=== PATIENT | male | born 1965 | race Caucasian/White ===

== ENCOUNTER 2017-08-10 07:00 | Outpatient (RCR) | payer OTHER, SELFPAY ==
--- NOTE | 2017-07-20 07:59 | HP.PTEVAL ---
Patient's Visit Information HAMLET BUNDY is a 51 year old M referred to Physical Therapy by Evan CHAUHAN with a diagnosis of L sided neck strain. Date of Evaluation: 07/20/17 Physical Therapist: Vinod Menendez, PT, - Visit Plan Frequency: 2x /Week Duration: 3 Weeks Plan: Postural edu, c/s retraction, scap stab ex's, DTR, MH, and HEP - Subjective Subjective: Pt reports he slipped on ice around Thanksgiving and fell. Pt notes he didnt immediately experience neck pain, but notes he did begin to have pain a couple days later. Pt notes the pain eventually went away, but returned 2 weeks ago. Pt reports the pain radiates down his L UE to his hand. Pt reports his pain is better in the morning, and progressively worsens in the morning. No sleep diff secondary to pain. No Dx tests at this time. Pt is taking muscle relaxant at this time. Heat helps pain. Nothing in particular provokes his pain. Intermitttent neck pain in the past, but never this bad. 6/10 at rest, 8/10 at worst (as the day progresses). Driving increases pain. 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 - Pain neck pain Pain Intensity (Out of 10): 6 Pain Intensity Range: 8 - Objective Neuro: B UE sensation is WNL to light touch. B bicepital reflex= 2/3. ROM: Pt is moderately limited with retraction, L SB, and ext. all other motion WNL. MMT: B UE is rated at 5/5 throughout. Repeated movements: rep protraction in sitting increased neck pain. rep retraction increases central neck pain. no UE radiculopathy produced. Pt notes retraction with L lat bend increases L UE. Special tests: pos vertebral compression and distraction test - Goals Goal 1:: Decrease neck pain x 50% to aid with IADL's Goal Time Frame: 2-4 Weeks Goal 2:: Decrease F and I of L UE radiculopathy x 50% to aid with IADL's Goal Time Frame: 2-4 Weeks Goal 3:: Increase C/S ROM to WNL to aid with driving Goal Time Frame: 2-4 Weeks Goal 4:: I with HEP Goal Time Frame: 2-4 Weeks - Rehabilitation Potential Physical Therapy Diagnosis: neck pain, limited ROM in C/S, and L UE radiculopathy secondary to Rehabilitation Potential: Good - Anticipated Interventions Patient/Client Instruction: Educate patient on: Condition, Plan of Care For the Purpose of:: To improve self management Therapeutic Exercise to Include: Strength training, Body mechanics, Postural training, Active ROM, Scapular Strength/Stabilization For the Purpose of:: To decrease pain, To increase ROM, To improve muscle performance and motor function Thermo therapy (hot pack): Yes For the Purpose of:: To decrease pain Thank you for the opportunity to evaluate your patient. For Medicare and Medicare HMO plans, please review the plan of care and approve it. It will need to be FAXED BACK to us at [phone] for Medicare purposes. Please let me know if there are questions or concerns regarding this plan of care. Physician Signature: Date:
--- NOTE | 2017-08-10 07:36 | HP.PTDCSUM ---
HP - PT D/C Summary It has been my pleasure to treat HAMLET BUNDY under orders from Evan Lange, for the diagnosis of L sided neck strain for a total of 7 visit(s). Discharge Date: Please see the following information for a summary of their discharge status. - Subjective Subjective: Only minor pain this date - Pain neck pain Pain Intensity (Out of 10): 1 - Objective Objective/Function: Pain in c/s 07/11. C/S ROM: Pt no longer has radiculopathy in L UE. Pt is I with HEP. Rx goals achieved - Goals Goal 1:: Decrease neck pain x 50% to aid with IADL's Goal Progress: Goal Met Goal 2:: Decrease F and I of L UE radiculopathy x 50% to aid with IADL's Goal Progress: Goal Met Goal 3:: Increase C/S ROM to WNL to aid with driving Goal Progress: Goal Met Goal 4:: I with HEP Goal Progress: Goal Met - Plan Plan: discharge - D/C Information If there are questions or concerns regarding this patient's physical therapy, please feel free to call me at [phone]. Thank you for the referral of this patient. Sincerely, Vinod Menendez, PT,
== END 2017-08-10 19:00 | disposition home or self-care (01) ==
LOC: PT 07:00
PROVIDERS: Family Provider Family Medicine; PCP Family Medicine; Visit Provider Family Medicine
DX: S16.1XXD Strain of muscle, fascia and tendon at neck level, subsequent encounter (principal)
CPT/HCPCS: 97110; 97140; 97161; 97530

== ENCOUNTER → 2019-02-11 13:02 | Outpatient (CLI) | payer OTHER, SELFPAY ==
--- NOTE | 2019-02-11 | IMM_PTH ---
PATIENT: HAMLET BUNDY LOC: [facility] U#:[id number] AGE/SX: 59/M ROOM: RE02/11/[address]: Dr. Evan Lange MD : 1965 BED: DIS: SPEC #: [id number] RECD: 02/12/19 12:58 STATUS: CLAUDIA REeMgan #: [id number] BARBARA: 02/11/19 00:[address]: Evan Lange DEPT: IMMUNOHISTOCHEMISTRY RECD BY: Lainey Rodgers Tissues: Shoulder, NOS Procedures: CK14 (add) CK5-6 (add) Vimentin (add) Pankeratin (initial) MELAN-A (add) P40 (add) S-100 (add) PHYSICIAN & INSTITUTION [place] [id number] SPECIMEN INFORMATION: Tissue Source: Left shoulder excision Clinical Info: Rule out melanoma Specimen Number: [id number] CPT code: 31365, 72061 x6 METHODOLOGY: Deparaffinized sections of prefer/formalin-fixed tissue or PAP/DQ stained slides are incubated with monoclonal/polyclonal antibodies/oligonucleotide probes. Localization is made via biotin free immunoperoxidase method. Appropriate controls are performed and reacted as expected. Results on target cell population are indicated in the following table: RESULTS: ANTIBODY / CLONE RESULT AE1-3 (AE1/AE3/PCK26) positive P40 (BC28) positive Vimentin (V9) negative S-100 (4C4.9) negative Melan A (A103) negative CK5-6 (D5 & 1684) positive CK14 (LL002) positive These tests were developed and their performance characteristics determined by [facility]. They may not have been cleared or approved by the U.S. Food and Drug Administration. The FDA has determined that such clearance or approval is not necessary. INTERPRETATION: Skin lesion of left shoulder, shave biopsy: No evidence of melanoma. AM:amber 02/13/19
--- NOTE | 2019-02-11 10:00 | LES_PTH ---
PATIENT: HAMLET BUNDY LOC: [facility] U#:[id number] AGE/SX: 59/M ROOM: RE02/11/[address]: Dr. Evan Lange MD : 1965 BED: DIS: SPEC #: [id number] RECD: 02/11/19 12:16 STATUS: CLAUDIA PENAMegan #: [id number] BARBARA: 02/11/19 10:[address]: Evan Lange DEPT: SURGICAL PATHOLOGY RECD BY: Don Palma Tissues: Skin of forearm, NOS Procedures: Surgery Specimen Level IV HEADER OPERATION: Excision left shoulder PRE-OP DIAGNOSIS: Rule out melanoma TISSUE SUBMITTED: Excision left shoulder MICROSCOPIC DIAGNOSIS Skin lesion of left shoulder, shave biopsy: Mild actinic change. Focal changes suggestive of lentigo. No evidence of melanoma. AM:amber 02/12/19 COMMENT Immunohistochemistry ([id number]) supports the above diagnosis. Case has been reviewed in consultation with Dr. Hammond who concurs with the above diagnosis. IDC:SJ MICROSCOPIC DESCRIPTION Slides are reviewed. GROSS DESCRIPTION Received in fixative is one container labeled with the patient's name and designated left shoulder. The specimen consists of a light cruz shave biopsy of skin measuring 2 x 1 x 0.2 cm. The specimen is inked, serially sectioned and totally submitted in one cassette. / AM:amber 02/11/19 TC: CPT: 59375
== END ==
PROVIDERS: Family Provider Family Medicine; PCP Family Medicine; Referring Provider Family Medicine; Visit Provider Family Medicine
DX: M75.92 Shoulder lesion, unspecified, left shoulder (principal)
CPT/HCPCS: 88305; 88341; 88342

== ENCOUNTER → 2019-08-04 09:32 | Outpatient (CLI) | payer OTHER, SELFPAY ==
[2019-08-04 10:39] LABS: Erythrocyte Sedimentation Rate 1 mm/hr (0-20)
[2019-08-04 10:42] LABS: Absolute Lymphocyte Count 0.97 X10^3/uL (0.83-4.51); Absolute Neutrophil Count 3.2 X10^3/uL (2.0-7.7); Basophil# 0.06 X10^3/uL; Basophil% 1.3 % (0-1); Eosinophil# 0.06 X10^3/uL; Eosinophils% 1.3 % (0-5); Hematocrit 48.5 % (40-54); Hemoglobin 15.6 g/dL (13.0-16.5); Lymphocyte # 0.97 X10^3/ul (4.0); Mean Corp Hgb Conc 32.2 g/dL (32-36); Mean Corpuscular Hgb 29.1 pg (27.0-32.0); Mean Corpuscular Volume 90.5 fL (80-94); Mean Platelet Vol. 10.1 fl (6.2-12.0); Monocyte# 0.36 X10^3/uL; Monocyte% 7.8 % (0-10); NRBC Flagged by Analyzer 0 % (0-5); Neutrophil # 3.15 X10^3/uL (2.7-7.7); Neutrophil % 68.2 % (47-70); Platelet Count 244 K/mm3 (150-450); RBC Distribution Width CV 12.5 % (11.6-14.6); Red Blood Count 5.36 M/mm3 (4.6-6.2); White Blood Count 4.6 K/mm3 (4.4-11.0)
[2019-08-04 11:28] LABS: Anion Gap 6 (5-15); BUN 17 mg/dL (7-18); BUN/Creat Ratio 14.4 RATIO (10-20); Calcium,Total 9.3 mg/dL (8.5-10.1); Chloride 106 mmol/L (98-107); Creatinine, Serum 1.18 mg/dL (0.70-1.30); EST Glomerular Filtration Rate 68 mL/min (>60); Est Glom Filt Rate - Afr Amer 82 mL/min (>60); Ferritin 71 ng/mL (26-388); Glucose 104 mg/dL (74-106); Iron 88 ug/dL (65-175); Magnesium 2.4 mg/dL (1.6-2.6); Potassium 4.1 mmol/L (3.5-5.1); Sodium Level 139 mmol/L (136-145); T4 Free Direct 0.89 ng/dL (0.76-1.46); Thyroid Stim Hormone (TSH) 1.32 uIU/mL (0.358-3.74)
== END ==
PROVIDERS: PCP Family Medicine; Referring Provider Family Medicine; Visit Provider Family Medicine
DX: R25.1 Tremor, unspecified (principal)
CPT/HCPCS: 36415; 80048; 82728; 83540; 83735; 84439; 84443; 85025; 85652

== ENCOUNTER → 2019-08-14 07:08 | Outpatient (CLI) | payer OTHER, SELFPAY ==
--- NOTE | 2019-08-14 07:26 | MRI_ITS ---
STUDY: MRI BRAIN WITHOUT CONTRAST REASON FOR EXAM: Male, 53 years old. tremor X 3 MONTHS TECHNIQUE: Standardized multiplanar fat and water weighted pulse sequences were obtained. COMPARISON: None. FINDINGS: Normal size of the ventricles and extra-axial spaces for the patient''s age. Normal white matter tracts of the supratentorial brain. There is no evidence for recent intracranial ischemia or other cause of cytotoxic edema on diffusion weighted imaging (DWI). Normal T2* images of the brain without demonstrated susceptibility artifact. There is no demonstrated hemosiderin stain. Midbrain iron stores are poorly visualized and may be depleted as in Parkinson''s disease per. Normal bilateral basal ganglia. Normal thalami. There is no extra-axial fluid accumulation. Normal flow voids within the major intracranial circulation suggesting patency by spin echo criteria. Normal sella turcica, pituitary gland, infundibular stalk, optic chiasm and hypothalamus. Normal tectal plate and pineal gland. Normal midbrain, fitz and medulla. Normal cerebellum. Normal basal cisterns. Normal bilateral temporal bones. Normal bilateral internal auditory canals. No demonstrated orbital abnormality, within the constraints of a routine brain study. Mucosal thickening in the right mastoid sinus consistent with chronic sinusitis. Normal calvarium and skull base. Normal visualized soft tissue structures. Normal visualized upper cervical spine. MRI/Brain without Contrast IMPRESSION: Normal unenhanced MRI of the brain. Poor visualization of mid brain iron stores which may be completed as in Parkinson''s disease. Clinical correlation is recommended. Electronically Signed: Dimitri Bland MD at 8:26 EST Tel , Service support ,
== END ==
PROVIDERS: PCP Family Medicine; Referring Provider Family Medicine; Visit Provider Family Medicine
DX: R25.1 Tremor, unspecified (principal)
CPT/HCPCS: 70551

== ENCOUNTER → 2019-12-24 | Outpatient (CLI) | payer OTHER, SELFPAY ==
--- NOTE | 2019-12-24 15:12 | RAD_ITS ---
STUDY: X-RAY - ABDOMEN/PELVIS REASON FOR EXAM: Male, 54 years old. abd pain TECHNIQUE: AP supine and upright views of the abdomen and pelvis. COMPARISON: None. FINDINGS: Normal visualized lung bases. There is an unremarkable bowel gas pattern. There is no demonstrated free abdominal air. The visualized liver, spleen and kidneys are grossly normal in size and morphology. Normal soft tissue structures. Normal visualized osseous structures. RAD/Abd Inc Decub and/or Erect IMPRESSION: Normal x-ray examination of the abdomen and pelvis. Electronically Signed: Flor Herrera MD at 22:49 EDT , Service support ,
[2019-12-24 17:43] LABS: Absolute Lymphocyte Count 1.31 X10^3/uL (0.83-4.51); Absolute Neutrophil Count 3.6 X10^3/uL (2.0-7.7); Basophil# 0.07 X10^3/uL; Basophil% 1.2 % (0-1); Eosinophil# 0.17 X10^3/uL; Hematocrit 48.2 % (40-54); Hemoglobin 15.5 g/dL (13.0-16.5); Lymphocyte # 1.31 X10^3/ul (4.0); Lymphocyte % 23.3 % (19-41); Mean Corp Hgb Conc 32.2 g/dL (32-36); Mean Corpuscular Hgb 29.6 pg (27.0-32.0); Mean Corpuscular Volume 92.2 fL (80-94); Mean Platelet Vol. 10.2 fl (6.2-12.0); Monocyte# 0.45 X10^3/uL; NRBC Flagged by Analyzer 0 % (0-5); Neutrophil % 64.1 % (47-70); Platelet Count 228 K/mm3 (150-450); RBC Distribution Width CV 12.2 % (11.6-14.6); RBC Distribution Width SD 41.4 fl (35.1-43.9); Red Blood Count 5.23 M/mm3 (4.6-6.2); White Blood Count 5.6 K/mm3 (4.4-11.0)
[2019-12-24 18:09] LABS: ALB/GLOB Ratio 1.1 RATIO (0.9-2.4); AST(SGOT) 19 U/L (15-37); Alanine Aminotransfer ALT/SGPT 38 U/L (16-61); Alkaline Phosphatase 74 U/L (45-117); Anion Gap 7 (5-15); BUN 11 mg/dL (7-18); BUN/Creat Ratio 9.2 RATIO (10-20); Calcium,Total 9.1 mg/dL (8.5-10.1); Chloride 103 mmol/L (98-107); EST Glomerular Filtration Rate 67 mL/min (>60); Est Glom Filt Rate - Afr Amer 81 mL/min (>60); Globulin 3.6 g/dL (2.2-4.2); Glucose 82 mg/dL (74-106); Potassium 3.7 mmol/L (3.5-5.1); Protein, Total 7.6 g/dL (6.4-8.2); Sodium Level 139 mmol/L (136-145)
== END | disposition home or self-care (01) ==
LOC: MTLAB 15:10
PROVIDERS: PCP Family Medicine; Referring Provider Family Medicine; Visit Provider Family Medicine
DX: R10.9 Unspecified abdominal pain (principal)
CPT/HCPCS: 36415; 74019; 80053; 85025

== ENCOUNTER → 2020-01-02 08:05 | Outpatient (CLI) | payer OTHER, SELFPAY ==
[2019-12-26 08:26] VITALS: BMI 31.5
--- NOTE | 2020-01-02 08:25 | EKG12_ITS ---
Test Reason : PREOP Blood Pressure : / mmHG Vent. Rate : 070 BPM Atrial Rate : 070 BPM P-R Int : 144 ms QRS Dur : 082 ms QT Int : 390 ms P-R-T Axes : 050 023 052 degrees QTc Int : 421 ms Normal sinus rhythm with sinus arrhythmia Normal ECG Confirmed by TED GALE ([id number]), assistant film editor PAPITO FLANAGAN ([id number]) on 01/05/2020 2:08:27 PM Referred By: ROWENA Confirmed By:TED GALE
== END ==
PROVIDERS: PCP Family Medicine; Visit Provider Surgery
DX: Z01.810 Encounter for preprocedural cardiovascular examination (principal)
CPT/HCPCS: 93005

== ENCOUNTER 2020-01-07 11:52 | Day surgery (SDC) | payer OTHER, SELFPAY ==
[2019-12-26 08:26] VITALS: BMI 31.5
--- NOTE | 2019-12-27 10:43 | HP_ITS ---
Intake Vital Signs 12/26/19 Height 5 ft 10 in 12/26/19 Weight: 220 lb 12/26/19 BMI 31.5 12/26/19 BP 114/82 H 12/26/19 Blood Pressure Location Rt brachial 12/26/19 Position Sitting 12/26/19 Respiration 18 12/26/19 Pulse 81 12/26/19 Pulse Source Monitor 12/26/19 Temp 98.2 F 12/26/19 Temp Source Temporal 12/26/19 Pulse Oximetry (%) 98 12/26/19 Oxygen Delivery Method room air Intake Visit Reasons: UMBILICAL HERNIA Chief Complaint: umbilical hernia Web Content Developer Required: No Accompanied by: Is patient in pain?: No Allergies No Known Allergies Allergy (Unverified 12/26/19 08:27) Medications fluticasone propionate 50 mcg/actuation nasal spray,suspension 1 spray INTRANASAL DAILY 12/26/19 [History Confirmed 12/26/19] lactobacillus combination no.9 4 billion cell capsule 4,000 mmu cells PO DAILY 12/26/19 [History Confirmed 12/26/19] loratadine 10 mg tablet 10 mg PO DAILY 12/26/19 [History Confirmed 12/26/19] multivitamin 1 tab PO DAILY 12/26/19 [History Confirmed 12/26/19] omeprazole 40 mg capsule,delayed release 40 mg PO DAILY 12/26/19 [History Confirmed 12/26/19] [facility] Medical History Abdominal pain (Acute) Acid reflux (Acute) Umbilical hernia (Acute) Surgical History History of laparoscopic appendectomy (Acute) Family History Father Cancer bladder cancer Mother Cancer skin cancer COPD (chronic obstructive pulmonary disease) Social History (Updated 12/27/19 @ 10:[address] Jordan Pearce MD) Smoking Status: Never smoker alcohol intake: current alcohol intake frequency: a few times a month substance use type: does not use HPI HPI HPI: HAMLET BUNDY, is a 54 M who presents to the office today for HPI HPI Surgical H&P: Yes HPI: HAMLET BUNDY, is a 54 M who presents to the office today for Evaluation of pain and a bulge in his umbilical area. Patient had a laparoscopic appendectomy performed many years ago he is noticed a recent onset of increasing pain at the umbilical site with a bulge. He has had no associated nausea vomiting or diarrhea. Patient notes that the pain is present particularly when he bends or if he eats a heavy meal and gets bloated ROS General General: No weight change, appetite, fatigue, colon cancer, breast cancer or weakness HEENT HEENT: No difficulty swallowing, eye injury, eye surgery, swollen glands or hoarseness Endo Endocrine: No thyroid disease, diabetes mellitus, thyroid cancer, Hair loss, heat intolerance or cold intolerance Skin Skin: No rash or changing moles Breast Breast: No left breast lump, right breast lump, nipple discharge, breast pain, abnormal mammogram, abnormal US or breast enlargement Musc Musculoskeletal: No back problems, arthritis, rheumatoid arthritis, gout or joint pain Cardio Cardiovascular: No murmur, pacemaker, heart disease, atrial fibrillation, high blood pressure, heart attack, heart stent, palpitations, shortness of breat with exertion or chest pain Psych Psychiatric: No depression, anxiety or hearing voices Resp Respiratory: No shortness of breath, No sleep apnea, Yes cough, No COPD, No asthma, No emphysema, No wheezing Gastro Gastrointestinal: Yes abdominal pain, No nausea or vomiting, Yes diarrhea, Yes constipation, No blood in stool, Yes acid reflux, No hemorrhoids, No ulcers, No gallbladder problem, No black,tarry stools Nando Hematologic: No blood thinners, No blood disorders, No bleeding, No anemia, No blood clots Neuro Neurologic: No system reviewed and no additional complaints, except as docu, No as per HPI, No abnormal walking, No abnormal hearing, No abnormal movements, No abnormal speech, No behavioral changes, No burning sensations, No confusion, No seizure-like activity, No unsteadiness, No dizziness, No localized weakness, No frequent falls, No headache(s), No lack of coordination, No loss of vision, No memory loss, No numbness, No other visual disturbances, No radiating pain, No restless legs, No sensory deficit, No fainting, No tingling, No tremor(s), No weakness, No other Exam Const General: no acute distress, well developed, well hydrated Orientation: oriented to person, oriented to place, oriented to time [facility] Head: normocephalic, atraumatic Ears: external ears normal Mouth: moist mucous membranes Eyes Sclera: sclerae normal Pupils: normal by confrontation Neck Neck: no lymphadenopathy noted Neck mass: No Thyroid: thyroid normal, symmetrical Chest Chest palpation & inspection: normal inspection of the chest Breast Palpation: No nipple discharge Resp Effort & Inspection: normal respiratory effort Auscultation: clear to auscultation bilaterally Percussion: percussion normal Cardio Rate: regular rate Rhythm: regular rhythm Heart Sounds: no murmurs GI Palpation: soft, no hepatosplenomegaly, no masses, tender Rectal Exam: other Other: Reducible incisional hernia is identified at the umbilical area. It is slightly tender to touch. Rectal exam deferred. Extrem General: normal to inspection, no clubbing, cyanosis or edema Assessment & Plan Problems 1. Incisional hernia, without obstruction or gangrene K43.2 Plan My plan is to perform An incisional hernia repair with mesh. The planned surgical procedure was discussed extensively with the patient. The risks, benefits, anticipated outcomes and possible complication were mentioned. The patient understands that all hernia repair surgery has a chance of recurrence and/or chronic post-operative pain. My staff has also explained the procedure in understandable terms and the patient was given the option to take printed material concerning the planned procedure. The patient had the opportunity to ask questions concerning the planned procedure. The patient freely consents to the planned procedure. Coding Level of Care Code Off vis,new,level 3 Diagnoses Incisional hernia, without obstruction or gangrene K43.2 ??Obstruction and gangrene presence: without obstruction or gangrene COVID (Procedure Consent) Procedure Criteria Procedure Criteria: Yes Elective The surgeon/proceduralist and patient have discussed in detail the risk of exposure to and/or potential harm posed by the COVID-19 virus with having a surgery/procedure at this time versus the risk of? delaying the surgery/procedure. It is not possible to know either the risk of delaying the surgery or procedure or chance of getting an infection with perfect accuracy, but a joint decision was made between the patient and the surgeon/proceduralist ?to proceed at this time with the scheduled surgery/procedure as indicated on the consent form. 12/27/19 1043 <Electronically signed by Jordan granda MD> Date _ Jordan Pearce MD I have re-examined the patient. There are no clinical changes since date of exam.
[2020-01-07 12:39] VITALS: BP 129/97; PULSE 90; RESP 16; TEMP 37.2; O2SAT 97; BMI 31.6
[2020-01-07] MEDS: Lactated Ringers 1,000 ML 100 ML IV (12:46)
[2020-01-07] MEDS: Cefazolin 2 GM in 0.9% Normal Saline 100 ML IV (13:54)
--- NOTE | 2020-01-07 13:55 | PCM.OPRPT ---
Problem List (1) Incisional hernia Status: Acute Qualifiers: Obstruction and gangrene presence: without obstruction or gangrene Qualified Code(s): K43.2 - Incisional hernia without obstruction or gangrene Report of Operation Date of Procedure: 01/07/20 Pre-Operative Diagnosis: Incisional hernia Post-Operative Diagnosis: Same Surgery/Procedure Performed:: Incisional hernia repair with mesh Type of Anesthesia:: General Anesthesiologist: Saad Erwin Specimen's removed: none Drains: none Estimated Blood Loss (mL): < 25 cc Fluids Replaced: 1 liter lr Description of Procedure: Patient was brought into the operating room. Placed in the supine position. Under excellent general endotracheal ovation the abdomen was sterilely prepped and draped in usual fashion. Local was injected. I opened his previous supraumbilical incision and lengthened it both lateral positions. I took the hernia off the umbilical skin. I dissected down dissected circumferentially around the incisional defect and placed the preperitoneal fat back into its peritoneal space. Preperitoneal window was created. A small ventral X hernia patch was then placed into the wound. I circumferentially tacked the mesh to the fascia using interrupted #1 Nurolon's. I had good coverage overlay the mesh laid completely flat and I had excellent hemostasis. Local was injected the wound was then closed in layer subcu with 2-0 Vicryl deep dermals with 3-0 Vicryl in a running 4-0 Monocryl Steri-Strips were applied sterile dressings were applied and the patient tolerated the procedure well. - Admit VTE Documentation VTE Present on Admission: No VTE Mechan Device Prophylaxis: SCD's VTE Pharm Prophylaxis ordered?: No Reason prophylaxis not ordered:: Treatment Not Indicated 40xxx-[id number]: 56773 Rpr ventral [place]y [place] [address] + mesh code 25823
--- NOTE | 2020-01-07 14:32 | DCINST_ITS ---
Discharge Diet: Light diet - advance as tolerated Discharge Activity: Return to Normal Activity, May Drive - when you are no longer taking narcotic pain medications., May Shower - with the bandage in place 1-2 days after surgery. Lifting Restrictions: 20 pounds for 8 weeks. Additional Activity Instructions:: Climbing stairs is fine, walking is encouraged. Sitting in bed may be uncomfortable. Sitting up using your lateral muscles (sitting up sideways) is usually more comfortable. Do not drive, work heavy equipment of sign legal documents for 24 hours. If your hernia repair was an ingunial repair, you may have scrotal swelling, an ice pack and/or athletic support can provide more comfort. Pain medications may cause nausea, you should typically eat light foods as you take your pain medications. Pain medications may also cause constipation. If you have difficulty with this, discuss with your doctor. Call your doctor if your incision/area has: Continuous Slow Oozing, Sudden Increased Bleeding, Increased Pain/ Swelling, Increased Redness, Foul Smelling Discharge Call your doctor if you observe: Fever of 101 or Higher Suture Line Care: Avoid Pulling/Pushing, Avoid Pinching/Bending Additional Dressing/Incision Instructions:: Leave the operative bandage on for 2-3 days. When you remove the bandage, leave the steri-strips on place until your follow up appointment or they fall off. Allergies/Adverse Reactions: Allergies No Known Allergies Allergy (Verified 01/07/20 12:39) Medications to take at Discharge fluticasone propionate 50 mcg/actuation nasal spray,suspension 1 spray INTRANASAL DAILY 12/26/19 loratadine 10 mg tablet 10 mg PO DAILY 12/26/19 multivitamin 1 tab PO DAILY 12/26/19 omeprazole 40 mg capsule,delayed release 40 mg PO DAILY 12/26/19 Red Yeast Rice 600 mg PO DAILY 12/29/19 Oxycodone HCl/Acetaminophen [Percocet 5/325] 1 - 2 tablet PO Q4H PRN PRN 6 Days #30 tablet 01/07/20 The following prescriptions were given: Oxycodone HCl/Acetaminophen [Percocet 5/325] 1 - 2 tablet PO Q4H PRN PRN 6 Days #30 tablet PRN Reason: Pain Transmission Status: Sent to [facility]/pharmacy #[id number] Primary Care Physician: Yoshi Lange MD [Primary Care Provider] - Test Results: Test results from this visit will be discussed in further detail at your follow- up appointment, if applicable. Please Follow Up With: Jordan Pearce MD - [phone] When: Plan to have a follow up appointment in 7 days. Call to schedule.
[2020-01-07] MEDS: Bupivacaine Mpf 0.5% 30 ML VIAL (14:34)
[2020-01-07 14:54] VITALS: BP 117/80; BP 129/97; PULSE 93; RESP 16; TEMP 36.8; O2SAT 96
[2020-01-07 15:05] VITALS: BP 118/80; BP 129/97; PULSE 85; RESP 17; O2SAT 97
[2020-01-07 15:15] VITALS: BP 115/83; BP 129/97; PULSE 78; RESP 16; O2SAT 96
[2020-01-07 15:30] VITALS: BP 118/88; BP 129/97; PULSE 88; RESP 16; TEMP 37.2; O2SAT 99
[2020-01-07 16:41] VITALS: BP 117/90; BP 129/97; PULSE 68; RESP 18; TEMP 36.6; O2SAT 95
== END 2020-01-07 16:46 | disposition home or self-care (01) ==
LOC: SDC 11:53 → AC 12:04
PROVIDERS: Anesthesiology; PCP Family Medicine; Referring Provider Surgery; Visit Provider Surgery
PROC: (CPT 49560; principal; 2020-01-07 13:45)
DX: K43.2 Incisional hernia without obstruction or gangrene (principal); K21.9 Gastro-esophageal reflux disease without esophagitis; E78.00 Pure hypercholesterolemia, unspecified; Z79.899 Other long term (current) drug therapy; Z87.891 Personal history of nicotine dependence; G47.30 Sleep apnea, unspecified
CPT/HCPCS: 00832; 49560; 49568; 87635; G2023; J7120; C1781; J2405; U0003

== ENCOUNTER → 2020-03-17 09:57 | Outpatient (CLI) | payer OTHER, SELFPAY ==
[2020-03-17 12:32] LABS: Anion Gap 6 (5-15); BUN 15 mg/dL (7-18); BUN/Creat Ratio 11.7 RATIO (10-20); Calcium,Total 9.3 mg/dL (8.5-10.1); Chloride 104 mmol/L (98-107); Cholesterol 200 mg/dL (200); Creatinine, Serum 1.28 mg/dL (0.70-1.30); EST Glomerular Filtration Rate 62 mL/min (>60); Est Glom Filt Rate - Afr Amer 75 mL/min (>60); Glucose 99 mg/dL (74-106); High Density Lipoprotein 52 mg/dL; Potassium 4.1 mmol/L (3.5-5.1); Sodium Level 140 mmol/L (136-145); Triglycerides 115 mg/dL; Very Low Density Lipoprotein 23 mg/dL (5-40)
== END ==
PROVIDERS: PCP Family Medicine; Referring Provider Family Medicine; Visit Provider Family Medicine
DX: Z13.1 Encounter for screening for diabetes mellitus (principal); Z13.220 Encounter for screening for lipoid disorders
CPT/HCPCS: 36415; 80048; 80061